=== PATIENT | female | born 1995 | race Caucasian/White ===

== ENCOUNTER 2017-01-12 21:10 | Emergency (ER) | payer BC ==
[~2017-01-12] VITALS: Ht 175.3 cm; Wt 68.0 kg
[2017-01-12] MEDS ORDERED: Oxycodone/Acetaminophen 5-325 ORAL ONE (22:15)
[2017-01-13 00:05] VITALS: BP 110/82
[2017-01-13] MEDS ORDERED: PERCOCET 5-3251 EACH ORAL (01:27)
[2017-01-13] MEDS ORDERED: IBUPROFEN600 MG ORAL (01:27)
[2017-01-13 02:25] VITALS: BP 112/78
[2017-01-13 02:30] VITALS: BP 112/78
--- NOTE | 2017-01-13 12:07 | Diagnostic Imaging Report ---
Indications: Right wrist pain Technique: 3 views of the right wrist. Findings: Comparison: None. No fracture, dislocation, lytic destruction, periosteal reaction, surrounding soft tissue swelling, or other acute changes are demonstrated. No deformity, alignment abnormality, arthritic change, soft tissue calcification, or other chronic changes are demonstrated. IMPRESSION: Negative right wrist series.
--- NOTE | 2017-01-13 12:11 | Diagnostic Imaging Report ---
Indications: Right elbow pain Technique: 3 views right elbow. Findings: Comparison: None Anterior and posterior fat pads are displaced. No fracture, dislocation, joint space widening , surrounding soft tissue swelling/foreign body/gas, or other acute changes are identified. IMPRESSION: Elbow joint effusion, nonspecific. If in the setting of trauma, occult fracture, particularly of the radial head, must be considered. If not in the setting of trauma, septic or other inflammatory arthritis must be considered. Correlate clinically. This correlates with [facility] preliminary report..
--- NOTE | 2017-01-13 16:06 | Diagnostic Imaging Report ---
Indications: Right elbow pain, joint effusion on portable radiographs Technique: Continuous helical CT imaging of the right elbow was performed with automatic exposure control on a Siemens sensation [address] scanner. Axial, coronal, sagittal images reconstructed at 3 mm slice thickness. CTDI volume(s): 12 mGy Total DLP: 276 mGy-cm Findings: Comparison: Right elbow radiographs performed earlier today Motion artifact grades images. Moderate fluid is present within the right elbow joint, displacing the coracoid and olecranon fossa fat pads. Curvilinear density resides adjacent to and follows exactly the cortical contour of the olecranon fossa and posterior aspect of the lateral humeral epicondyle. Otherwise, no fracture, dislocation, joint space widening, lytic destruction, periosteal reaction, surrounding soft tissue swelling/mass/fluid/gas, or other acute change identified. IMPRESSION: Right elbow joint effusion, nonspecific. Curvilinear density adjacent to distal aspect of humerus described most likely represents motion artifact. However, cortical avulsion fracture not entirely excludable. If in the setting of trauma, ligamentous injury should also be considered. Consider MRI for further evaluation. If not in the setting of trauma, acute arthritis must be considered. Consider arthrocentesis for further evaluation. This correlates with [facility] preliminary report.
--- NOTE | 2017-01-13 23:12 | Emergency Room Report ---
History of Present Illness General Chief Complaint: Upper Extremity Injury Source: Patient Present Illness HPI 21 YOF presents with elbow pain s/p trip and fall on flexed right wrist.C/o mild pain to right hand. Holding right arm at angle with left hand. Unable to fully extend left elbow. No other open injuries. No previous injuries to right arm noted. Allergies: Coded Allergies: No Known Allergies (Unverified , 01/12/17) Patient History Past Medical History: none Past Surgical History: none Pertinent Family History: none Social History: Denies: alcohol use, drug use, smoking Last Menstrual Period: JANUARY 12, 2017 Now: No Immunizations: UTD Reviewed Nursing Documentation: PMH: Agreed, PSxH: Agreed Review of Systems All Other Systems: negative except mentioned in HPI Physical Exam Vital Signs Date Time Temp Pulse Resp B/P Pulse Ox O2 Delivery O2 Flow Rate FiO2 01/12/17 21:44 98.1 66 20 119/82 98 Room Air Sp02 EP Interpretation: reviewed, normal General Appearance: normal inspection, well appearing, alert, GCS 15, non-toxic , mild distress Head: normocephalic, atraumatic Eyes: bilateral eye EOMI, bilateral eye PERRL ENT: normal ENT inspection, hearing grossly normal, normal voice Neck: normal inspection, full range of motion, supple, no bony tend Respiratory: normal inspection, lungs clear, normal breath sounds, no respiratory distress, no retraction, no wheezing Cardiovascular #1: regular rate, rhythm, no edema Gastrointestinal: normal inspection, normal bowel sounds, non tender, soft, no guarding, no hernia Genitourinary: no CVA tenderness Musculoskeletal: other - Right arm: Right elbow held in flexion with left hand. Significant ttp to elbow joint. No obvious deformity/trauma. No ttp to right wrist. Mild ttp to dorsum of right hand otherwise full ROM of right hand and wrist. Neurologic: normal inspection, alert, oriented x3, responsive, cytogeneticist III-XII nml as tested, motor strength/tone normal, speech normal Psychiatric: normal inspection Skin: normal inspection, normal color, no rash Lymphatic: normal inspection Procedures Splinting Splinting : Consent: Verbal Hand-Made Type: plaster Splint: posterior long Pre-Proc Neuro Vasc Exam: normal Post-Proc Neuro Vasc Exam: normal Patient Tolerated: Well Complications: None Medical Decision Making Diagnostic Impression: Primary Impression: Elbow fracture, left Qualified Codes: S42.402A - Unspecified fracture of lower end of left humerus , initial encounter for closed fracture ER Course [facility] interpreation of CT of right elbow suggested occult fracture of supracondylar aspect of humerus Right wrist series negative for acute trauma on ED review Long arm splint of elbow provided along with splint Rx analgesia Advised PMD referral for Ortho followup in 1 week DC home Other X-Ray Diagnostic Results Other X-Ray Diagnostic Results : X-Ray Ordered: RIght wrist EP Interpretation: Yes Findings: no fractures, no dislocation, no soft tissue swelling Number of Views: 3 Last Vital Signs Date Time Temp Pulse Resp B/P Pulse Ox O2 Delivery O2 Flow Rate FiO2 01/13/17 02:30 98.1 81 20 112/78 99 Room Air Status: improved Disposition: HOME, SELF-CARE Condition: Improved Scripts Oxycodone/Acetaminophen 5-325* (PERCOCET 5-325 MG TABLET*) 1 Each Tablet 1 TAB ORAL BID Y for severe pain for 6 Days, #12 TAB Prov: JILLIAN WALLACE M.D. 01/13/17 Ibuprofen* (MOTRIN*) 600 Mg Tablet 600 MG ORAL THREE TIMES A DAY, #30 TAB 0 Refills Prov: JILLIAN WALLACE M.D. 01/13/17 Referrals: NON PHYSICIAN (PCP) Patient Instructions: Elbow Fracture, Simple Additional Instructions: - Keep cast clean/dry - Wear sling - Follow up with your primary care doctor for an orthopedics referral within 1 week - Take Ibuprofen for pain and percocet for only severe pain JILLIAN WALLACE M.D. Jan 13, 2017 23:12
== END 2017-01-13 02:40 | disposition home or self-care (01) ==
LOC: EMR 22:05
DX: S42.402A Unspecified fracture of lower end of left humerus, initial encounter for closed fracture (principal); W01.0XXA Fall on same level from slipping, tripping and stumbling without subsequent striking against object, initial encounter; Y93.9 Activity, unspecified; Y92.9 Unspecified place or not applicable
CPT/HCPCS: 29125; 29240; 99284